=== PATIENT | female | born 1980 | race Caucasian/White ===

== ENCOUNTER → 2020-02-19 11:34 | Outpatient (CLI) | payer OTHER, SELFPAY ==
--- NOTE | 2020-02-19 12:00 | RAD_ITS ---
STUDY: X-RAY - CERVICAL SPINE REASON FOR EXAM: Female, 39 years old. Neck pain radiating into right shoulder TECHNIQUE: 5 view(s) of the cervical spine were obtained. COMPARISON: None FINDINGS: Normal anterior atlantoaxial articulation. Normal odontoid process. Normal cervical lordosis. Normal vertebral bodies and endplates. Normal disc space heights. Normal visualized intervertebral neuroforamina. The soft tissue structures are unremarkable. RAD/Cerv Spine 2 or 3 Views IMPRESSION: Normal x-ray examination of the visualized cervical spine. Electronically Signed: Brandan Ibrahim MD at 17:14 EDT , Service support ,
--- NOTE | 2020-02-19 12:00 | RAD_ITS ---
STUDY: X-RAY - LUMBAR SPINE REASON FOR EXAM: Female, 39 years old. Pain TECHNIQUE: 3 view(s) of the lumbar spine were obtained. COMPARISON: None FINDINGS: Normal lumbar lordosis. There is no substantial scoliosis. There is a normal alignment of the vertebrae. The patient is status post laminectomy and fusion at the L3-L4 and L4-L5 levels. There is multi-level degenerative disc disease with multi-level disc space narrowing. IUD is seen within the uterus. RAD/Lumbar Spine 2 or 3 Views IMPRESSION: Prior laminectomy and fusion at the L3-L4 and L4-L5 levels. Electronically Signed: Omari Thompson, at 15:49 EDT , Service support ,
== END ==
PROVIDERS: Referring Provider Anesthesiology Pain Medicine; Visit Provider Anesthesiology Pain Medicine
DX: M54.9 Dorsalgia, unspecified (principal); M79.606 Pain in leg, unspecified
CPT/HCPCS: 72040; 72100; J7040; A4216

== ENCOUNTER 2021-09-24 06:45 | Day surgery (SDC) | payer MEDICAID, SELFPAY ==
[2021-09-24 07:09] VITALS: BP 120/88; PULSE 86; RESP 16; TEMP 36.4; O2SAT 99; BMI 35.4
[2021-09-24 07:17] LABS: Internal QC Validated? YES +Cl - CLEAR BKGD; Pregnancy, Urine Negative Negative
[2021-09-24] MEDS: Vancomycin IV 1,000 MG/200 ML BAG 200 MG IV (07:21)
[2021-09-24] MEDS: Lactated Ringers 1,000 ML 15 ML IV (07:22)
--- NOTE | 2021-09-24 08:15 | RAD_ITS ---
PROCEDURE: L3-L4, L4-L5 and L5-S1 discograms. DATE OF EXAMINATION: 09/24/2021. INDICATION: Female, 40 years old. Chronic low back pain. FLUOROSCOPY TIME (if supplied): (1 minute and 38 seconds) minutes/seconds. 7 images were obtained. RAD/Fluoro Guided Needle Placement IMPRESSION: Intraoperative imaging provided for L3-L4, L4-L5 and L5-S1 discograms. Electronically Signed: Omari Thompson MD at 10:39 EDT ,
[2021-09-24] MEDS: Lidocaine 0.5% (50 ml) 50 ML Vial (08:47)
[2021-09-24] MEDS: Triamcinolone Acetonide 40 MG/ML Vial (09:15)
[2021-09-24] MEDS: Bupivacaine 0.25% 30 ML Vial (09:15)
[2021-09-24 09:20] VITALS: BP 120/88; BP 121/82; PULSE 79; RESP 14; TEMP 37; O2SAT 99
[2021-09-24 09:25] VITALS: BP 120/88; BP 124/80; PULSE 80; RESP 16; O2SAT 98
[2021-09-24 09:30] VITALS: BP 120/88; BP 135/92; PULSE 74; RESP 16; O2SAT 98
[2021-09-24 09:35] VITALS: BP 119/81; BP 120/88; PULSE 68; RESP 16; TEMP 37.1; O2SAT 100
[2021-09-24 09:56] VITALS: BP 120/88
== END 2021-09-24 23:59 | disposition home or self-care (01) ==
LOC: SDC 06:49 → AC 06:50
PROVIDERS: Anesthesiology; PCP Nurse Practitioner Family; Referring Provider Anesthesiology Pain Medicine; Visit Provider Anesthesiology Pain Medicine
PROC: 3E0T3BZ Introduction of Anesthetic Agent into Peripheral Nerves and Plexi, Percutaneous Approach (ICD-10-PCS; CPT 62290; principal; 2021-09-24 08:10)
DX: M51.26 Other intervertebral disc displacement, lumbar region (principal); M47.816 Spondylosis without myelopathy or radiculopathy, lumbar region; E03.9 Hypothyroidism, unspecified; E78.00 Pure hypercholesterolemia, unspecified; Z79.890 Hormone replacement therapy; Z79.899 Other long term (current) drug therapy
CPT/HCPCS: 62290; 01938; 76000; 77002; 81025; J7120

== ENCOUNTER 2022-09-26 13:03 | Day surgery (SDC) | payer MEDICAID, SELFPAY ==
[2022-09-26] VITALS (7 sets, daily range): BP systolic 102–124; BP diastolic 72–77; PULSE 87–102; RESP 16–18; TEMP 36.2–36.6; O2SAT 92–99; BMI 32.9
[2022-09-26 13:42] LABS: Internal QC Validated? YES +Cl - CLEAR BKGD; Pregnancy, Urine Negative Negative
[2022-09-26] MEDS: Lactated Ringers 1,000 ML 15 ML IV (13:46)
[2022-09-26] MEDS: Cefazolin 2 GM in 0.9% Normal Saline 100 ML IV (14:00)
--- NOTE | 2022-09-26 14:00 | RAD_ITS ---
PROCEDURE: Percutaneous implantation of neurostimulator device. DATE OF EXAMINATION: September 26, 2022. INDICATION: Female, 41 years old. Chronic back pain. FLUOROSCOPY TIME (if supplied): (3 minutes and 11 seconds.) minutes/seconds. 70.7 mGy. 9 images were submitted. RADIATION DOSAGE (If Supplied By Facility): CTDIvol = ( ) mGy, DLP = ( ) mGycm RAD/Lumbar Spine 2 or 3 Views IMPRESSION: Intraoperative imaging was provided for implantation of a neurostimulator device. Electronically Signed: Omari Thompson MD at 14:00 EDT ,
[2022-09-26] MEDS: Lidocaine 2% (20 ml mdv) 20 ML Vial (14:50)
--- NOTE | 2022-09-26 15:05 | PCM.OPRPT ---
Report of Operation Date of Procedure: 09/26/22 Description of Surgical Findings:: Pre-Operative Diagnosis:?Lumbosacral radiculopathy, lumbosacral degenerative disc disease, lumbosacral spinal stenosis, postlaminectomy syndrome of the lumbar spine Post-Operative Diagnosis:?Lumbosacral radiculopathy, lumbosacral degenerative disc disease, lumbosacral spinal stenosis, postlaminectomy syndrome of the lumbar spine Surgery/Procedure Performed::?1.? Spinal cord stimulator thoracolumbar leads placement x2 #2 spinal cord stimulator Medtronic intellus generator placement #3 spinal cord stimulator generator pocket creation at the right gluteal region #4 spinal cord stimulator simple programming, 5-intraoperative fluoroscopic interpretation MAC COMPLICATIONS: None BLOOD LOSS: Minimal Implanted device: Spinal cord stimulator lead [id number] lot number [id number], lead #2? [id number] lot number [id number] Medtronic spinal cord stimulator generator intellis serial number [id number] PROCEDURE IN DETAIL: History and physical today was reviewed. Risks and benefits of procedure explained. The patient understood, agreed to procedure, informed consent was obtained. IV inserted per routine protocol. The patient was taken to the operating room, placed in the prone position with a pillow positioned underneath the abdomen. A 2 g of Ancef IV piggyback was infused per anesthesia. The lower back and right gluteal area was prepped and draped in a sterile fashion using iodine x3 Ioban was placed.? The C-arm was brought in position for AP view at the L2-3 vertebral bodies under direct visualization fluoroscopy on a true AP view the L2-3 interlaminar space was identified skin and subcutaneous tissue and size approximately 10 cc of a mix of 2% lidocaine and 0.25% Marcaine using a 25-gauge regular needle followed by a 25-gauge 3-1/2 inch spinal needle towards the interlaminar space at L2-3, the skin and subcutaneous tissue were then anesthetized and using an 11-gauge blade was then taken down to the skin and subcutaneous tissue using a 14-gauge 3-1/2 inch Touhy needle provided by the [employer] kit the needle was passed through the skin towards the interlaminar space at L2-3 and a paramedian approach the needle was then advanced under direct visualization fluoroscopy towards the interlaminar space at L2-3 [id number] technique was then carried to air towards the interlaminar space at L2-3 once the tip of the needle was in the epidural space and loss of resistance was encountered to air and after confirmation of AP as well as oblique view of the spinal cord stimulator lead was then advanced under direct visualization fluoroscopy to be at the tip of the lead at T8 and the bottom of the lead around mid T10 after confirmation of AP as well as lateral view to confirm correct placement of the lead in the posterior compartment of the epidural space the previous procedure was then repeated to a level above at L1-2 interlaminar space the second lead was then inserted under direct visualization with fluoroscopy to be at the mid T8 and mid T10 area the leads were were then connected to the external neurostimulator and patient was then awakened to confirm satisfactory coverage of the painful area once satisfactory coverage was then achieved the stylette of each needle was then removed and the skin and subcutaneous tissue on to the left of the paramedian needles was then taken anesthetized with a total of 20 cc of the previous mixture of 0.25% Marcaine and 2% lidocaine using a 25-gauge regular needle the incision was then taken down through the skin and subcutaneous tissue towards the fascia making sure hemostasis was then maintained via cautery, the spinal cord stimulator leads were then passed through the above incision and secured using the injex anchor and sutured down with a 2-0 silk to the fascia at that level the spinal cord stimulator leads were then tunneled via a tunneler provided by the [employer] kit towards the previously incised spinal cord stimulator battery at the right gluteal region skin and subcutaneous tissue were anesthetized with approximately 20 cc of a mix of 2% lidocaine and 0.25% Marcaine using a 25 gauge regular needle, skin and subcutaneous tissue was then taken down with the 11-gauge blade hemostasis was maintained with Bovie and direct pressure the incision was then taken down to the fascia and the battery was then secured with the 2-0 silk sutures that were the spinal cord stimulator leads the upper lead was then marked the new until spinal cord stimulator battery was then provided Via [employer] kit the battery was then reattached of the spinal cord stimulator make ensure that the top lead is attached to the top position from 0-7 electrodes and the bottom from 8-15 electrodes once impedance was then checked to be in the proper average number, the intellis battery was then inserted into the pocket and impedance with when checked again the pocket was then inspected to confirm hemostasis in place, the [employer]ellis battery was then secured to the fascia using a 2-0 silk to the upper eyes of the battery confirming an upward writing of the intellis facing posterior,? once complete confirmation the battery was then placed in the position and the the left lumbar mid paramedian and the gluteal incisions were then closed primarily through 0 Vicryl in an interrupted fashion followed by a 3-0 Vicryl in a running fashion followed by a 4-0 Vicryl to the skin, hemostasis was then maintained during the procedure the skin was then covered with a Steri-Strips and bacitracin patient was then returned into the supine position in a stable condition and returned to recovery in a stable condition patient experienced no signs or symptoms of intrathecal or intravascular injection patient experienced no paresthesia the procedure was completed without any apparent difficulty any complication the patient appeared to tolerate well, motor as well as sensory function was unchanged from prior to the procedure ESTIMATED BLOOD LOSS: Minimal less than 25 mL ASSESSMENT AND PLAN: This is a 41-year-old female with lumbosacral radiculopathy lumbosacral degenerative disc disease lumbosacral spinal stenosis, postlaminectomy syndrome of the lumbar spine status post 1.? Spinal cord stimulator thoracolumbar leads placement x2 #2 spinal cord stimulator Medtronic intellis generator placement #3 spinal cord stimulator generator pocket creation at the right gluteal region #4 spinal cord stimulator simple programming, 5-intraoperative fluoroscopic interpretation, the patient will continue her current medications a prescription was provided to the patient?for? Keflex 500 mg 1 p.o. every 8 hours for 7 days, Percocet 5-325 mg 1 p.o. every 4-6 hours for acute postoperative pain dispense 20 postop instruction were given in writing to the patient as well as her mother verbally and in writing, patient will follow approximately 1 week for reevaluation.
== END 2022-09-26 16:16 | disposition home or self-care (01) ==
LOC: SDC 13:08 → AC 13:15
PROVIDERS: Anesthesiology; PCP Nurse Practitioner Family; Referring Provider Anesthesiology Pain Medicine; Visit Provider Anesthesiology Pain Medicine
PROC: (CPT 63685; principal; 2022-09-26 14:45)
DX: Z45.42 Encounter for adjustment and management of neurostimulator (principal); M51.17 Intervertebral disc disorders with radiculopathy, lumbosacral region; M48.07 Spinal stenosis, lumbosacral region; M96.1 Postlaminectomy syndrome, not elsewhere classified; F32.A Depression, unspecified; E78.00 Pure hypercholesterolemia, unspecified; G89.29 Other chronic pain; E03.9 Hypothyroidism, unspecified; G43.909 Migraine, unspecified, not intractable, without status migrainosus; F12.90 Cannabis use, unspecified, uncomplicated; I10 Essential (primary) hypertension; Z79.899 Other long term (current) drug therapy
CPT/HCPCS: 63650 ×2; 63685; 00630; 72100; 76000; 81025; C1778; C1820; J7120; J2405

== ENCOUNTER 2023-05-31 12:00 | Outpatient (RCR) | payer MEDICAID, SELFPAY | END 2023-05-31 19:00 | disposition home or self-care (01) | LOC: PT 12:00 | PROVIDERS: PCP Nurse Practitioner Family | DX: M25.511 Pain in right shoulder (principal); M54.2 Cervicalgia ==

== ENCOUNTER 2024-01-08 11:00 | Outpatient (RCR) | payer OTHER, SELFPAY | END 2024-01-08 19:00 | disposition home or self-care (01) | LOC: PT 11:00 | PROVIDERS: PCP Nurse Practitioner Family | DX: Z00.00 Encounter for general adult medical examination without abnormal findings (principal) ==

== ENCOUNTER 2024-05-20 11:51 | Outpatient (RCR) | payer SELFPAY | END 2024-05-20 19:00 | disposition home or self-care (01) | LOC: PT 11:51 | PROVIDERS: PCP Nurse Practitioner Family | DX: Z00.00 Encounter for general adult medical examination without abnormal findings (principal) ==